=== PATIENT | female | born 1995 | race Caucasian/White ===

== ENCOUNTER → 2021-03-13 | Outpatient (CLI) | payer OTHER | LOC: M WHC 09:55 | PROVIDERS: ATTEND Specialist | DX: Z34.82 Encounter for supervision of other normal pregnancy, second trimester (principal) ==

== ENCOUNTER → 2021-04-03 | Outpatient (CLI) | payer OTHER | LOC: M WHC 08:25 | PROVIDERS: ATTEND Specialist | DX: Z34.82 Encounter for supervision of other normal pregnancy, second trimester (principal) ==

== ENCOUNTER → 2021-04-17 | Outpatient (CLI) | payer OTHER ==
[2021-04-17 15:30] LABS: HEMATOCRIT 34.9 % (36.0-47.0); HEMOGLOBIN 11.6 g/dl (12.0-15.5); MEAN CORPUSCULAR HEMOGLOBIN 28.6 pg (27.0-33.0); MEAN CORPUSCULAR HGB CONC 33.2 g/dl (32.0-36.5); PLATELET COUNT, AUTOMATED 219 10^3/uL (150-450); RED BLOOD COUNT 4.06 10^6/uL (4.00-5.40); WHITE BLOOD COUNT 11.3 10^3/uL (4.0-10.0)
[2021-04-17 16:48] LABS: GC DNA AMPLIFICATION NEGATIVE (NEGATIVE)
== END ==
LOC: M PLALAB 11:25
PROVIDERS: ATTEND Specialist
DX: Z34.82 Encounter for supervision of other normal pregnancy, second trimester (principal)

== ENCOUNTER → 2021-06-29 | Outpatient (REF) | payer OTHER | LOC: M SFHCWAGY 17:15 | PROVIDERS: ATTEND Obstetrics & Gynecology | DX: Z36.89 Encounter for other specified antenatal screening (principal); Z3A.36 36 weeks gestation of pregnancy ==

== ENCOUNTER → 2021-07-04 | Outpatient (CLI) | payer OTHER | LOC: M WHC 09:10 | PROVIDERS: ATTEND Obstetrics & Gynecology | DX: O24.415 Gestational diabetes mellitus in pregnancy, controlled by oral hypoglycemic drugs (principal) ==

== ENCOUNTER 2021-07-21 15:58 | Inpatient (IN) | payer OTHER ==
[2021-07-21] VITALS (9 sets, daily range): BP systolic 100–134; BP diastolic 57–83
[~2021-07-21] VITALS: Ht 167.6 cm; Wt 104.5 kg
[2021-07-21] MEDS ORDERED: METF-877 PO (16:04)
[2021-07-21] MEDS ORDERED: PRENTAB9 PO (16:04)
[2021-07-21] MEDS ORDERED: HOME MED LIST COMPLETE! XX SCH (16:45)
[2021-07-21] MEDS ORDERED: LACTATED RINGER'S 1000 ML IV PRN (16:50)
[2021-07-21] MEDS ORDERED: CARBOPROST TROMETHAMINE 250 MCG/ML AMP IM PRN (16:50)
[2021-07-21] MEDS ORDERED: OXYTOCIN INJ 10 UNITS/ML VIAL (J2590) IM PRN (16:50)
[2021-07-21] MEDS ORDERED: METHYLERGONOVINE MALEATE 0.2 MG/ML VIAL (J2210) IM PRN (16:50)
[2021-07-21] MEDS ORDERED: OXYTOCIN DRIP 30 UNITS in IV 1 EA IV PRN ×4 (16:50)
[2021-07-21] MEDS ORDERED: TRANEXAMIC ACID INJection 1,000 MG in NS 100 ML IV PRN (16:50)
[2021-07-21] MEDS ORDERED: miSOPROStol 50MCG 1/2 TABLET PO ONE (18:00)
[2021-07-21 18:42] LABS: HEMATOCRIT 32.8 % (36.0-47.0); HEMOGLOBIN 10.7 g/dl (12.0-15.5); MEAN CORPUSCULAR HEMOGLOBIN 26.1 pg (27.0-33.0); MEAN CORPUSCULAR HGB CONC 32.6 g/dl (32.0-36.5); PLATELET COUNT, AUTOMATED 181 10^3/uL (150-450); WHITE BLOOD COUNT 10.7 10^3/uL (4.0-10.0)
[2021-07-22] VITALS (51 sets, daily range): BP systolic 95–165; BP diastolic 43–96
[2021-07-22] MEDS ORDERED: PENICILLIN G POTASSIUM IV 5 MU in D5W MINI-BAG PLUS 100 ML IV STA (00:09)
[2021-07-22] MEDS ORDERED: OXYTOCIN DRIP 30 UNITS in IV 1 EA IV SCH ×3 (00:10→14:45)
[2021-07-22] MEDS: NS 1,000 ML IV SCH ×4 (00:37→10:39)
[2021-07-22] MEDS ORDERED: EPIDURAL/PCA KEYS XX PRN (03:35)
[2021-07-22] MEDS ORDERED: ONDANSETRON 4MG/2ML VIAL IV PRN (03:35)
[2021-07-22] MEDS ORDERED: diphenhydrAMINE 50MG/ML VIAL (J1200) IV PRN (03:35)
[2021-07-22] MEDS ORDERED: ePHEDrine SULFATE 25 MG/5 ML(5MG/ML) SYRINGE IVP PRN (03:35)
[2021-07-22] MEDS ORDERED: NALOXONE INJ 0.4MG/1ML VIAL (J2310 PER 1MG) IV PRN (03:35)
[2021-07-22] MEDS ORDERED: LR 500 ML IV PRN (03:35)
[2021-07-22] MEDS: PENICILLIN G POTASSIUM IV 2.5 MU in IV 1 EA IV SCH ×3 (04:40→12:13)
[2021-07-22] MEDS: FENTANYL/ROPIVACAINE/NACL BAG 100 ML EPIDURAL SCH ×2 (05:44→12:59)
[2021-07-22] MEDS ORDERED: METHYLERGONOVINE MALEATE 0.2 MG TAB PO PRN (14:05)
[2021-07-22] MEDS ORDERED: RHOGAM 300 MCG (1500 IU) INJ (J2790) IM SCH (14:05)
[2021-07-22] MEDS ORDERED: IBUPROFEN 600MG TAB PO PRN (14:05)
[2021-07-22] MEDS ORDERED: DIBUCAINE 1% OINTMENT 30GM TOP PRN (14:05)
[2021-07-22] MEDS ORDERED: ACETAMINOPHEN 500 MG TAB PO PRN (14:05)
[2021-07-22] MEDS ORDERED: DOCUSATE SODIUM 100MG CAPSULE PO PRN (14:05)
[2021-07-23 05:53] VITALS: BP 110/61
[2021-07-23 06:57] LABS: HEMATOCRIT 29.2 % (36.0-47.0); HEMOGLOBIN 9.4 g/dl (12.0-15.5); MEAN CORPUSCULAR HEMOGLOBIN 26.4 pg (27.0-33.0); MEAN CORPUSCULAR HGB CONC 32.2 g/dl (32.0-36.5); PLATELET COUNT, AUTOMATED 147 10^3/uL (150-450); RED BLOOD COUNT 3.56 10^6/uL (4.00-5.40)
[2021-07-23 08:00] VITALS: BP 110/61
[2021-07-23] MEDS: PRENATAL VITAMINS CHEWABLE TABLET PO SCH (08:24)
[2021-07-23 17:52] VITALS: BP 118/60
[2021-07-24 06:00] VITALS: BP 120/74
[2021-07-24] MEDS ORDERED: MEASLES,MUMPS,RUBELLA VACCINE INJ (MMR-II) (90707) SC.IMMUN ONE (09:00)
[2021-07-24] MEDS ORDERED: COLA100C5 PO (09:32)
[2021-07-24] MEDS ORDERED: IBUP-1022 PO (09:32)
[2021-07-24] MEDS ORDERED: ACET-683 PO (09:32)
[2021-07-24] MEDS: PRENATAL VITAMINS CHEWABLE TABLET PO SCH (09:57)
== END 2021-07-24 11:40 | disposition home or self-care (01) | DRG 560 ==
LOC: M LDI 15:58 → M OBS 07-22 16:23
PROVIDERS: ADMIT Obstetrics & Gynecology; ATTEND Obstetrics & Gynecology
PROC: 3E0P7GC Introduction of Other Therapeutic Substance into Female Reproductive, Via Natural or Artificial Opening (ICD-10-PCS; 2021-07-21)
PROC: 10E0XZZ Delivery of Products of Conception, External Approach (ICD-10-PCS; principal; 2021-07-22)
PROC: 10907ZC Drainage of Amniotic Fluid, Therapeutic from Products of Conception, Via Natural or Artificial Opening (ICD-10-PCS; 2021-07-22)
DX: O24.425 Gestational diabetes mellitus in childbirth, controlled by oral hypoglycemic drugs (principal); O99.824 Streptococcus B carrier state complicating childbirth; Z3A.39 39 weeks gestation of pregnancy; O69.3XX0 Labor and delivery complicated by short cord, not applicable or unspecified; Z37.0 Single live birth

== ENCOUNTER → 2021-11-29 | Outpatient (REF) | payer OTHER ==
[~2021-11-29] MED LIST: ACET-683 PO; COLA100C5 PO; IBUP-1022 PO; METF-877 PO; PRENTAB9 PO
== END ==
LOC: M PLALAB 16:42
PROVIDERS: ATTEND Obstetrics & Gynecology
DX: Z01.419 Encounter for gynecological examination (general) (routine) without abnormal findings (principal)

== ENCOUNTER → 2023-03-17 | Outpatient (CLI) | payer OTHER | LOC: M PLALAB 14:51 | PROVIDERS: ATTEND Advanced Practice Midwife | DX: N92.0 Excessive and frequent menstruation with regular cycle (principal); R63.5 Abnormal weight gain; R35.0 Frequency of micturition; Z12.4 Encounter for screening for malignant neoplasm of cervix ==

== ENCOUNTER → 2024-03-22 | Outpatient (REF) | payer OTHER ==
[2024-03-24 14:23] LABS: HPV APTIMA Not Detected (Not Detected)
== END ==
LOC: M SFHCWAGY 17:29
PROVIDERS: ATTEND Advanced Practice Midwife
DX: Z12.4 Encounter for screening for malignant neoplasm of cervix (principal); R87.615 Unsatisfactory cytologic smear of cervix; R87.618 Other abnormal cytological findings on specimens from cervix uteri